=== PATIENT | male | born 1975 | race Caucasian/White ===

== ENCOUNTER → 2022-01-30 | Outpatient (CLI) | payer BC, OTHER ==
--- NOTE | 2022-01-30 08:09 | Diagnostic Imaging Report ---
INDICATION: Elbow pain COMPARISON: None available. TECHNIQUE: 3 radiographs of the right elbow dated 01/30/2022 FINDINGS: No acute fracture or dislocation. No destructive osseous process. No elbow joint effusion. Calcifications are identified adjacent to the medial epicondyle. No additional suspicious radiopaque foreign body. IMPRESSION: No acute osseous abnormality. Calcifications adjacent to the medial epicondyle, felt to relate to sequelae of medial epicondylitis. Dictated by: Dictated on workstation # [id number]
== END ==
LOC: RAD FS 07:54
PROVIDERS: ATTEND Pediatrics
DX: M25.521 Pain in right elbow (principal)
CPT/HCPCS: 73080